=== PATIENT | female | born 1985 | race Two or more races ===

== ENCOUNTER 2019-02-10 07:39 | Inpatient (IN) | payer OTHER ==
[~2019-02-10] VITALS: Ht 160 cm; Wt 2.7 kg
[2019-02-10] MEDS ORDERED: PRENATABS RX T1 EACH PO (08:01)
[2019-02-10] MEDS ORDERED: PRILOSEC10 MG PO (08:02)
[2019-02-10] MEDS ORDERED: ASA81 MG PO (08:02)
== END 2019-02-12 12:08 | disposition home or self-care (01) | DRG 807 ==
LOC: LDR 07:39 → OB/GYN 07:54
PROVIDERS: ADMIT Obstetrics & Gynecology
PROC: 10E0XZZ Delivery of Products of Conception, External Approach (ICD-10-PCS; principal; 2019-02-10)
PROC: 10907ZC Drainage of Amniotic Fluid, Therapeutic from Products of Conception, Via Natural or Artificial Opening (ICD-10-PCS; 2019-02-10)
PROC: 3E033VJ Introduction of Other Hormone into Peripheral Vein, Percutaneous Approach (ICD-10-PCS; 2019-02-10)
PROC: 4A1HXCZ Monitoring of Products of Conception, Cardiac Rate, External Approach (ICD-10-PCS; 2019-02-10)
DX: O80 Encounter for full-term uncomplicated delivery (principal); Z37.0 Single live birth; Z3A.40 40 weeks gestation of pregnancy